=== PATIENT | female | born 1990 | race African-American/Black ===

== ENCOUNTER 2017-06-25 10:20 | Emergency (ER) | payer OTHER ==
[~2017-06-25] VITALS: Ht 165.1 cm; Wt 52.2 kg
[2017-06-25] MEDS ORDERED: KETOROLAC TROMETHAMINE 30 MG INJ IM ONE (10:45)
[2017-06-25] MEDS ORDERED: KETOROLAC TROMETHAMINE 30 MG INJ ONE (10:59)
--- NOTE | 2017-06-25 11:35 | NUR ---
Patient discharged to home in stable conditon. Written and verbal after care instructions given. Patient verbalizes understanding of instructions.pt walks in steady gait. pt says feels better. pain down to 3/10 to tolerable level.
[2017-06-25 11:36] VITALS: BP 129/69
== END 2017-06-25 11:37 | disposition home or self-care (01) ==
LOC: ER 10:20
DX: S13.9XXA Sprain of joints and ligaments of unspecified parts of neck, initial encounter (principal); V49.49XA Driver injured in collision with other motor vehicles in traffic accident, initial encounter; Y93.89 Activity, other specified; Y92.413 State road as the place of occurrence of the external cause; Y99.9 Unspecified external cause status
CPT/HCPCS: 72125; 96372; 99284; A4663; J1885